=== PATIENT | female | born 1995 | race Caucasian/White ===

== ENCOUNTER 2022-10-05 09:05 | Outpatient (REF) | payer OTHER, SELFPAY ==
[2022-10-05 10:24] LABS: Hematocrit 36.5 % (37.0-47.0); Hemoglobin 12.5 g/dl (12.0-16.0); Mean Corpuscular HGB Conc 34.2 g/dl (31.0-35.0); Mean Corpuscular Hemoglobin 30.3 pg (27.0-33.0); Mean Corpuscular Volume 88.4 fL (80.0-98.0); Mean Platelet Volume 9.5 fL (9.4-12.3); Platelet Count 236 X10*3/uL (160-400); Red Blood Count 4.13 X10*6/uL (4.20-5.50); White Blood Count 6.8 X10*3/uL (4.8-10.8)
[2022-10-05 10:29] LABS: Prothrombin Time 11.3 SEC (10.0-13.1)
[2022-10-05 10:53] LABS: Alanine Aminotransferase 79 U/L (0-31); Albumin Level 4.2 g/dL (3.5-5.0); Alkaline Phosphatase 66 U/L (39-117); Anion Gap 11 (12-20); Aspartate Amino Transferase 48 U/L (5-31); Bilirubin Total 0.5 mg/dL (0.0-1.0); Blood Urea Nitrogen 9 mg/dL (9-16); Calcium 9.4 mg/dL (8.4-10.2); Carbon Dioxide 26 mmol/L (22-29); Chloride 108 mmol/L (96-108); Estimated Glomerular Filt Rate > 60; Glucose Random 85 mg/dL (60-115); Potassium 3.9 mmol/L (3.3-5.1); Sodium 141 mmol/L (135-145); Total Protein 7.1 g/dL (6.5-8.0)
[2022-10-06 04:14] LABS: Hepatitis A Antibody IgG REACTIVE (Nonreactive); ~Hepatitis A Antibody IgG 8.57 S/CO (0.00-0.99)
[2022-10-06 04:32] LABS: HBS Num1 2.01 mIU/mL (0-7.99); HBc Num1 0.11 S/CO (0.00-0.79); HBsAGNum1 0.31 S/CO (0.00-0.99); HIV AB/AG Nonreactive (Nonreactive); HIV Num 1 0.08 S/CO (0.00-0.99); Hepatitis B Core Antibody Nonreactive (Nonreactive); Hepatitis B Surface Antigen Negative (Negative); ~Hepatitis B Surface Antibody NONREACTIVE (Nonreactive)
[2022-10-07 20:43] LABS: Hepatitis B Viral DNA Qn - cp <1.00 NOT DETECTED Log IU/mL (NOT DETECTED); Hepatitis B Viral DNA Qn-IU/mL <10 NOT DETECTED IU/mL (NOT DETECTED)
[2022-10-14 14:24] LABS: Hepatitis C Genotype 3
== END 2022-10-05 09:06 | disposition home or self-care (01) ==
LOC: HO.LAB 09:05
PROVIDERS: PCP Internal Medicine; Referring Provider Internal Medicine; Visit Provider Internal Medicine
DX: B18.2 Chronic viral hepatitis C (principal); F11.21 Opioid dependence, in remission; F17.210 Nicotine dependence, cigarettes, uncomplicated
CPT/HCPCS: 36415; 80053; 85027; 85610; 86704; 86706; 86708; 87340; 87389; 87517; 87902; 99202

== ENCOUNTER 2022-10-15 08:02 | Outpatient (REF) | payer OTHER, SELFPAY ==
--- NOTE | ~2022-10-15 | US_ITS ---
EXAMINATION: US ABDOMEN COMPLETE CLINICAL INFORMATION: Unspecified viral hepatitis C without hepatic coma. COMPARISON: None available. TECHNIQUE: Real-time imaging of the abdominal viscera. Limited exam due to obstructive/highly shadowing bowel gas. FINDINGS: PANCREAS: Mildly atrophic and otherwise unremarkable. No mass, ductal dilatation or peripancreatic fluid collection is noted. ABDOMINAL AORTA: The proximal, mid, and distal segments are normal in caliber. INFERIOR VENA CAVA: Visualized portions are normal. LIVER: The liver is normal in size. The liver contour is normal. There is mildly increased liver parenchymal echogenicity. No focal hepatic lesion. There is no intrahepatic biliary duct dilatation seen. GALLBLADDER: The gallbladder is physiologically distended. Multiple mobile gallstones are present. No evidence of pericholecystic fluid. COMMON BILE DUCT: Normal in caliber measuring 0.7 cm in diameter. RIGHT KIDNEY: Normal. No hydronephrosis. No renal calculi or focal parenchymal lesions. The kidney measures 11.9 cm in maximum dimension. 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 No hydronephrosis. No renal calculi or focal parenchymal lesions. The kidney measures 10.6 cm in maximum dimension. SPLEEN: No focal finding. The spleen measures 13.0 cm in maximum dimension. FREE FLUID: None. US/US abdomen complete IMPRESSION: 1. There is generalized increase in hepatic echotexture, consistent with fatty infiltration or hepatocellular disease. Please correlate clinically. Provided history of hepatitis C noted. No focal hepatic mass or intrahepatic biliary dilatation is seen. 2. There is borderline splenomegaly. 3. There is cholelithiasis. 4. 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
== END 2022-10-15 08:03 | disposition home or self-care (01) ==
LOC: HO.HMGCX 08:02
PROVIDERS: PCP Internal Medicine; Visit Provider Internal Medicine
DX: B19.20 Unspecified viral hepatitis C without hepatic coma (principal)
CPT/HCPCS: 76700

== ENCOUNTER → 2022-10-19 09:49 | Outpatient (BNVA) | payer OTHER, SELFPAY | PROVIDERS: PCP Internal Medicine; Visit Provider Internal Medicine | DX: B19.20 Unspecified viral hepatitis C without hepatic coma (principal); B20 Human immunodeficiency virus [HIV] disease | CPT/HCPCS: 99211 ==

== ENCOUNTER 2023-01-05 08:54 | Outpatient (AMB) | payer OTHER, SELFPAY ==
--- NOTE | 2023-01-05 09:02 | MHC.OFFVIS ---
Intake Vital Signs 01/05/23 09:04 Height 5 ft 4 in Weight 194 lb 0.108 oz BMI 33.3 BP 98/60 Blood Pressure Location Lt brachial Position Sitting Pulse 89 Intake Visit Reasons: 3 month fu Intake Note: Jodie presents in the office as a 3 month follow up. CC: She states that she is not having any concerns today! 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 10/05/22: Likely contracted from IV drug use. First found out about this almost 6 years ago through a detox center. Has been sober since 01/2021. Has previously been checked for HIV and HBV and reportedly negative. Currently only complaints are occ nausea and fatigue. Smokes 0.5PPD, does not drink. No fam hx of liver disease that she is aware of. Labs from [facility]. reviewed, genotype, HBV and HIV status N/A. Correspondence: On 10/15/22 @ 14:24 Marietta Jain Wrote To Annmarie Benítez Yes pls, thank you. On 10/15/22 @ 14:17 Annmarie Benítez Wrote To Marietta Jain ?Glecaprevir (300 mg)?/?pibrentasvir (120 mg)? x 8 weeks OR Sofosbuvir (400 mg)?/?velpatasvir (100 mg)?x 12 weeks ? On 10/15/22 @ 14:16 Marietta Jain Wrote To Annmarie Benítez Genotype 3 for HCV. Paras, could you pls help move forward with the tx? THank you On 11/17/22 @ 12:29 Marietta Jain Wrote To Ludmila Urbano (2) Thank you for keeping tabs on this Paras. I will also forward this to her PCP. On 11/17/22 @ 11:16 Annmarie Benítez Wrote To Marietta Jain telephone call received from [facility] pharmacy. I was informed that patient has been unreachable and has not received her Hep C medications. I was informed that several messages have been left with no call returned. I have also attempted several calls with no response. sending as FYI 01/05/23: Pt reports was on vacation at the end of October and therefore was not reachable. However has now started Mavyret since 11/30 and has been taking it as prescribed. Started week 5 this Tuesday. No other gastrointestinal issues otherwise. No relapse of IVDU. Not sexually active. [facility] Medical History Annual physical exam Anxiety Bipolar 1 disorder Cyclic vomiting syndrome Depression Hepatitis C Hx of osteomyelitis Normal pelvic exam Osteomyelitis Substance abuse Surgical History History of surgery on lower extremity Family History Father Substance use disorder Mother No problems noted. Other Mental health disorder Social History Household Members Other:: single, unemployed, Housing: Other Patient Tobacco Use Status: Current everyday Tobacco user Cigarette Packs Per Day: 0.5 e-Cigarette/Vaping Use: Former Use Current occupational status: unemployed Cognitive needs: No Hearing needs: No Vision needs: No Physical Exam Vital Signs: Last Vital Signs Pulse 89 01/05/23 09:04 BP 98/60 01/05/23 09:04 BMI result Body Mass Index 33.3 Gen appear: NAD HEENT: nonicteric, no cervical lymphadenopathy Chest: CTA CVS: Regular S1/S2 Abd: soft, nontender, nondistended, bowel sounds + Ext: no peripheral edema Neuro: A/Ox3, noted to move all extremities spontaneously Psych: interacting appropriately Assessment & Plan Assessment & Plan (1) Hepatitis C: Code(s): B19.20 - Unspecified viral hepatitis C without hepatic coma Plan: Chronic HCV genotype 3 - Treatment naiive. No clinical evidence of cirrhosis. - No coinfection with HBV or HIV Started Mavyret 11/30 and due to complete this 01/31. Plan: - Monitor hepatic function at 8w - labs ordered and reminder set - Will also need labs in Dec to document SVR 12 - Encouraged continued sobriety from polysubstance use - Follow up in 5 months i.e after labs for SVR Orders: Orders Liver Panel 01/31/23 B19.20 - Unspecified viral hepatitis C without hepatic coma Hepatitis C Viral Load 01/31/23 B19.20 - Unspecified viral hepatitis C without hepatic coma Prothrombin Time INR 01/31/23 B19.20 - Unspecified viral hepatitis C without hepatic coma Coding Level of Care Code Est Pt Level 4 (89543) Diagnoses Hepatitis C B19.20
[2023-01-05 09:04] VITALS: BP 98/60; PULSE 89; BMI 33.3
== END 2023-01-05 09:43 | disposition home or self-care (01) ==
PROVIDERS: PCP Internal Medicine; Visit Provider Internal Medicine
DX: B19.20 Unspecified viral hepatitis C without hepatic coma (principal)
CPT/HCPCS: 99214

== ENCOUNTER → 2023-01-05 08:54 | Outpatient (BNVA) | payer OTHER, SELFPAY | PROVIDERS: PCP Internal Medicine; Visit Provider Internal Medicine | DX: B19.20 Unspecified viral hepatitis C without hepatic coma (principal) | CPT/HCPCS: 99212 ==

== ENCOUNTER 2023-02-09 09:24 | Outpatient (REF) | payer OTHER, SELFPAY ==
[2023-02-09 10:12] LABS: Prothrombin Time 11.8 SEC (11.1-13.3)
[2023-02-09 10:51] LABS: Alanine Aminotransferase 16 U/L (0-31); Albumin Level 4.2 g/dL (3.5-5.0); Alkaline Phosphatase 79 U/L (39-117); Aspartate Amino Transferase 20 U/L (5-31); Bilirubin Direct 0.2 mg/dL (0.0-0.5); Bilirubin Total 0.6 mg/dL (0.0-1.0); Total Protein 7.4 g/dL (6.5-8.0)
[2023-02-10 14:49] LABS: HCV Log PCR <1.18 NOT DETECTED Log IU/mL (NOT DETECTED); HepC Viral Load <15 NOT DETECTED IU/mL (NOT DETECTED)
== END 2023-02-09 09:25 | disposition home or self-care (01) ==
LOC: HO.LAB 09:24
PROVIDERS: PCP Internal Medicine; Visit Provider Internal Medicine
DX: B19.20 Unspecified viral hepatitis C without hepatic coma (principal)
CPT/HCPCS: 36415; 80076; 85610; 87522

== ENCOUNTER 2023-08-15 11:09 | Emergency (ER) | payer OTHER, SELFPAY ==
--- NOTE | ~2023-08-15 | CT_ITS ---
EXAMINATION: CT ABDOMEN AND PELVIS WITH CONTRAST CLINICAL INFORMATION: Periumbilical and right lower quadrant abdominal pain. COMPARISON: Ultrasound imaging from 10/15/2022 TECHNIQUE: Multidetector volumetric images were obtained from the superior aspect of the liver through the pubic symphysis following administration 85 mL of Omnipaque 350 intravenous contrast. Sagittal and coronal reformatted images were obtained on the technologist's workstation. Oral contrast: No This CT examination was performed using dose optimization techniques as appropriate, variously including the following: *Automated exposure control *Adjustment of mA and/or kV according to patient size (this includes techniques or standardized protocols for targeted exams where dose is matched to indication/reason for exam; i.e. extremities or head) *Use of iterative reconstruction technique DLP: 673 mGy-cm FINDINGS: LUNG BASES: No pulmonary consolidation or pleural effusion. HEPATOBILIARY: Mild hepatomegaly with the right hepatic lobe measuring 18.8 cm in craniocaudal dimension. No focal liver lesion. Gallbladder is physiologically distended. A noncalcified stone is faintly visualized within the gallbladder neck. No gallbladder wall edema or pericholecystic fluid. No dilated bile ducts. PANCREAS: No edema, pancreatic ductal dilatation or mass. SPLEEN: Normal. ADRENAL GLANDS: Normal. KIDNEYS AND URETERS: The left kidney is chronically ectopically positioned within the pelvis. No renal stones or hydronephrosis. BLADDER: Normal. BOWEL AND PERITONEUM: Stomach and small bowel are unremarkable. No dilated loops. The appendix is normal. No overt colonic wall thickening or mesenteric fat stranding. No free fluid or pneumoperitoneum. ABDOMINAL WALL: Large body habitus. No acute abnormalities within the abdominal wall. VASCULATURE: Unremarkable. LYMPH NODES: No pathologic sized lymph nodes in the abdomen or pelvis. No inguinal lymphadenopathy. PELVIC VISCERA: No uterine or adnexal mass. No pelvic fluid collection. MUSCULOSKELETAL: No acute or suspicious osseous abnormality. 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 There is vacuum disc degenerative change at L5-S1. CT/CT abdomen pelvis w IV con IMPRESSION: * Cholelithiasis without evidence of cholecystitis. * The appendix is normal. No evidence of an acute inflammatory process along the gastrointestinal tract. * The left kidney is ectopically positioned within the pelvis. No renal stone or hydronephrosis. 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
--- NOTE | 2023-08-15 11:12 | ED.GENADULT ---
HPI - General Adult General Chief complaint: Nausea/Vomiting/Diarrhea Stated complaint: Abd pain/Vomiting Time Seen by Provider: 08/15/23 12:37 Source: patient Mode of arrival: ambulatory History of Present Illness HPI narrative: 27-year-old female who arrives with onset of diffuse abdominal discomfort that started this morning with associated nausea, vomiting, denies any surgical history or renal colic, denies dysuria. Related Data Home Medications Medication Instructions Recorded Confirmed gabapentin 400 mg capsule 400 mg PO TID 01/05/23 Previous Rx's Medication Instructions Recorded glecaprevir 100 mg-pibrentasvir 40 3 tab PO DAILY 8 weeks #168 tabs 11/02/22 mg tablet amitriptyline 50 mg tablet 50 mg PO BEDTIME #30 tabs 11/26/22 amitriptyline 10 mg tablet 10 mg PO DAILY #30 tabs 03/03/23 Allergies Allergy/AdvReac Type Severity Reaction Status Date / Time prochlorperazine Allergy Intermediate dystonic Verified 01/05/23 09:04 [From Compazine] reaction Review of Systems Review of Systems: Pertinent positives and negatives as stated in HPI [facility] Past Medical History Source: nursing notes reviewed Medical History Hx of osteomyelitis Bipolar 1 disorder Substance abuse Osteomyelitis Normal pelvic exam Annual physical exam Anxiety Depression Hepatitis C Cyclic vomiting syndrome Surgical History History of surgery on lower extremity Family History Family History Father Substance use disorder Mother No problems noted. Other Mental health disorder Social History Social History Household Members Other:: single, unemployed, Housing: Other Patient Tobacco Use Status: Current everyday Tobacco user Cigarette Packs Per Day: 0.5 Smoked in Last 30 Days: Yes e-Cigarette/Vaping Use: Former Use Use of substances other than those prescribed or required for medical reasons: No Advance Directives: No Advance Directives Information Provided: No Patient : No Current occupational status: unemployed Cognitive needs: No Hearing needs: No Vision needs: No Physical Exam ED Vital Signs: Vital Signs - 24 hr 08/15/23 11:13 08/15/23 12:33 Temperature 98.3 F 98.3 F Pulse Rate 90 72 Respiratory Rate 20 12 Blood Pressure 112/55 L 93/74 Pulse Oximetry 97 100 Oxygen Delivery Method Room Air Room Air BMI result Body Mass Index 32.6 VITAL SIGNS: Reviewed. GENERAL: Elevated BMI, Well developed, well nourished, in no acute distress. HEAD: Normocephalic/atraumatic EYES: PERRLA, EOMI EARS: Ext canals without abnormality NOSE: Nares patent bilateral OROPHARYNX: no oral lesions noted, posterior pharynx clear NECK: Supple, no adenopathy LUNGS: Normal breath sounds. No adventitious sounds or accessory muscle use. SpO2<100> CARDIOVASCULAR: Regular rate and rhythm without noted murmurs ABDOMEN: Soft, periumbilical/right lower quadrant discomfort without rebound, non-distended with bowel sounds. MUSCULOSKELETAL: No tenderness, deformities, or effusions noted on gross inspection. EXTREMITIES: No cyanosis, clubbing or edema. SKIN: Inspection of the skin reveals no rashes NEUROLOGIC: Alert and oriented x 4. Strength and sensation to light touch were grossly intact x 4. Course Course Course Narrative: This is a rapid medical exam: Additional HPI, ROS, PE not included below will be deferred to primary provider. Patient is a 27-year-old female with history of hepatitis C, cyclical vomiting syndrome, bipolar 1 disorder presenting to the ED with complaint of diffuse abdominal pain, nausea, and vomiting since 5am. Plan: labs, UA Medications Administered Discontinued Medications Generic Name Dose Route Start Last Admin Trade Name Freq PRN Reason Stop Dose Admin Sodium Chloride 500 mls @ 999 mls/hr 08/15/23 13:15 08/15/23 14:17 Ns IV 08/15/23 13:45 Infused .Q31M YASH Infusion Iohexol 85 ml 08/15/23 15:32 08/15/23 15:35 Iohexol 350 Mg/Ml 100 Ml Infus..Btl IV 08/15/23 15:33 85 ml ONCE ONE Administration Ondansetron HCl 4 mg 08/15/23 13:14 08/15/23 13:48 Ondansetron Hcl 4 Mg/2 Ml Vial IVPUSH 08/15/23 13:15 4 mg ONCE ONE Administration Medical Decision Making Medical Decision Making MDM Narrative: 27-year-old female with history and clinical presentation, DDX: Renal colic, UTI, some concern for appendicitis although lower, possible constipation. I reviewed all investigations and hematologic indices demonstrated non infectious leukocytosis, patient is afebrile and there is no anemia or thrombocytopenia. Chemistry indices negative for SARAN/electrolyte or liver enzyme derangements and beta hCG is undetectable. Urinalysis is negative for UTI or hematuria. CT scan negative other than for cholelithiasis without evidence of acute cholecystitis. Patient was p.o. challenged and tolerated intake, she is otherwise discharged with instructions to follow-up in the outpatient setting for elective cholecystectomy. Differential Diagnosis Differential Diagnoses: The differential diagnosis associated with the presentation includes Please see the discussion above Admission/Observation Consideration of admission/observation: Escalation of care including admission/observation considered Please see the discussion above Lab Data MDM Lab Attestation statement: I reviewed the patient's lab results. Please see the discussion above 08/15/23 11:26 08/15/23 11:26 Labs: Lab Results 08/15/23 08/15/23 Range/Units 11:26 13:23 WBC 13.9 H (4.8-10.8) X10*3/uL RBC 4.54 (4.20-5.50) X10*6/uL Hgb 13.7 (12.0-16.0) g/dl Hct 38.2 (37.0-47.0) % MCV 84.1 (80.0-98.0) fL MCH 30.2 (27.0-33.0) pg MCHC 35.9 H (31.0-35.0) g/dl RDW 12.8 (11.0-16.0) % Plt Count 321 D (160-400) X10*3/uL MPV 9.1 L (9.4-12.3) fL Immature Gran % (Auto) 0.3 (0.0-0.4) % Neut % (Auto) 84.3 H (45-73) % Lymph % (Auto) 11.6 L (20-40) % [place] % (Auto) 2.9 (2-11) % Eos % (Auto) 0.5 (0-4) % Baso % (Auto) 0.4 (0-2) % Lymph # (Auto) 1.6 (1.2-4.9) X10*3/uL [place] # (Auto) 0.4 (0.1-1.2) X10*3/uL Eos # (Auto) 0.1 (0.0-0.4) X10*3/uL Baso # (Auto) 0.1 (0.0-0.2) X10*3/uL Abs Immat Gran (auto) 0.04 H (0.00-0.03) X10*3/uL Absolute Neuts (auto) 11.7 H (2.0-8.3) x10*3/uL Absolute Nucleated RBC 0.000 (0.0-0.012) X10*3/uL Nucleated RBC % (auto) 0.0 (0.0-0.2) /100WBC Sodium 143 (135-145) mmol/L Potassium 3.8 (3.3-5.1) mmol/L Chloride 109 H (96-108) mmol/L Carbon Dioxide 23 (22-29) mmol/L Anion Gap 15 (12-20) BUN 6 L (9-16) mg/dL Creatinine 0.68 (0.5-1.4) mg/dL Estim Creat Clear Calc 133.1 Estimated GFR > 60 Random Glucose 112 (60-115) mg/dL Calcium 9.5 (8.4-10.2) mg/dL Magnesium 2.2 (1.6-2.6) mg/dL Total Bilirubin 0.3 (0.0-1.0) mg/dL AST 14 (5-31) U/L ALT 20 (0-31) U/L Alkaline Phosphatase 64 (39-117) U/L Total Protein 7.5 (6.5-8.0) g/dL Albumin 4.5 (3.5-5.0) g/dL Beta HCG, Quant < 2 mIU/mL Urine Color Yellow Urine Appearance Clear Urine pH 8.0 (5.0-9.0) Ur Specific [place] 1.020 (1.005-1.025) Urine Protein Trace (Neg-Trace) mg/dL Urine Glucose (UA) Negative (Negative) mg/dL Urine Ketones Negative (Negative) mg/dL Urine Blood Negative (Negative) Urine Nitrite Negative (Negative) Ur Leukocyte Esterase Negative (Negative) Radiology Impression Discussion of test interpretation with radiology: I have reviewed the radiologist's reading. Radiologist Impression: Please see the discussion above External Record Review External record reviewed: Outpatient record, Prior outpatient labs and Prior outpatient radiology Critical Care Time Critical Care Time Critical Care Time: Yes Total Critical Care Time: 30 Attestation: I personally attest to this time spent taking care of the patient. Discharge Plan Discharge Clinical Impression: Cholelithiasis Patient Disposition: Home, Self-Care Instructions: Gallstones (ED) Additional Instructions: 1. Resume all home medications as prescribed. 2. Follow-up with a referral that we have provided below to have the gallbladder stones evaluated in the outpatient setting with possible discussion regarding the removal of your gallbladder. This does not need to happen today. 3. Please follow-up with your primary care doctor in the next 1-2 days. Return to the ER for any acute worsening of your symptoms. Prescriptions: No Action glecaprevir-pibrentasvir 100-40 mg tablet 3 tab PO DAILY 56 Days Qty: 168 0RF Rx Instructions: must administer with a meal/food amitriptyline 50 mg tablet 50 mg PO BEDTIME Qty: 30 2RF amitriptyline 10 mg tablet 10 mg PO DAILY Qty: 30 2RF gabapentin 400 mg capsule 400 mg PO TID Referrals: Ludmila Urbano MD [Primary Care Provider] - Jeison Walker MD [Physician] -
[2023-08-15 11:13] VITALS: BP 112/55; PULSE 90; RESP 20; TEMP 36.8; O2SAT 97; BMI 32.6
[2023-08-15 11:31] LABS: MANUAL DIFF FLAG NO
[2023-08-15 11:33] LABS: Basophils Absolute Auto 0.1 X10*3/uL (0.0-0.2); Basophils Percent Auto 0.4 % (0-2); Eosinophils Absolute Auto 0.1 X10*3/uL (0.0-0.4); Eosinophils Percent Auto 0.5 % (0-4); Hematocrit 38.2 % (37.0-47.0); Hemoglobin 13.7 g/dl (12.0-16.0); Imm Gran Abs Auto 0.04 X10*3/uL (0.00-0.03); Imm Gran Pct Auto 0.3 % (0.0-0.4); Lymphocytes Absolute Auto 1.6 X10*3/uL (1.2-4.9); Lymphocytes Percent Auto 11.6 % (20-40); Mean Corpuscular HGB Conc 35.9 g/dl (31.0-35.0); Mean Corpuscular Hemoglobin 30.2 pg (27.0-33.0); Mean Corpuscular Volume 84.1 fL (80.0-98.0); Mean Platelet Volume 9.1 fL (9.4-12.3); Monocytes Absolute Auto 0.4 X10*3/uL (0.1-1.2); Monocytes Percent Auto 2.9 % (2-11); Neutrophils Absolute Auto 11.7 x10*3/uL (2.0-8.3); Neutrophils Percent Auto 84.3 % (45-73); Platelet Count 321 X10*3/uL (160-400); Red Blood Count 4.54 X10*6/uL (4.20-5.50); Red Cell Distribution Width 12.8 % (11.0-16.0); White Blood Count 13.9 X10*3/uL (4.8-10.8)
[2023-08-15 11:53] LABS: Alanine Aminotransferase 20 U/L (0-31); Albumin Level 4.5 g/dL (3.5-5.0); Alkaline Phosphatase 64 U/L (39-117); Anion Gap 15 (12-20); Aspartate Amino Transferase 14 U/L (5-31); Bilirubin Total 0.3 mg/dL (0.0-1.0); Blood Urea Nitrogen 6 mg/dL (9-16); Calcium 9.5 mg/dL (8.4-10.2); Carbon Dioxide 23 mmol/L (22-29); Chloride 109 mmol/L (96-108); Creatinine Clr Calc Pharmacy 133.1; Estimated Glomerular Filt Rate > 60; Glucose Random 112 mg/dL (60-115); HCG Quantitative < 2 mIU/mL; Magnesium 2.2 mg/dL (1.6-2.6); Potassium 3.8 mmol/L (3.3-5.1); Sodium 143 mmol/L (135-145); Total Protein 7.5 g/dL (6.5-8.0)
[2023-08-15 12:33] VITALS: BP 93/74; PULSE 72; RESP 12; TEMP 36.8; O2SAT 100
[2023-08-15 13:29] LABS: Appearance Urine Clear; Color Urine Yellow; Glucose Urine UA Negative (Negative); Leukocyte Esterase Urine Negative (Negative); Nitrite Urine Negative (Negative); Urine Blood Negative (Negative); Urine Ketones Negative (Negative); Urine Protein Trace mg/dL (Neg-Trace)
[2023-08-15] MEDS: 0.9 % Sodium Chloride 500 ML 1000 ML IV (13:47)
[2023-08-15] MEDS: ondansetron HCL 4 MG/2 ML VIAL IVPUSH (13:48)
--- NOTE | 2023-08-15 13:48 | PC.NURSE ---
pt a&ox3, c/o 10/23 abd pain, iv inserted, labs previously drawn, ivf started per order, pt medicated for nausea, will continue to monitor
--- NOTE | 2023-08-15 13:53 | PC.NURSE ---
after zofran pt vomited 200 cc
[2023-08-15] MEDS: iohexoL 350 MG/ML 100 ML INFUS..BTL 85 ML IV (15:35)
[2023-08-15 17:10] VITALS: BP 92/63; PULSE 93; RESP 17; TEMP 36.3; O2SAT 99
[2023-08-15 17:52] VITALS: BP 108/66; PULSE 88; RESP 18; TEMP 36.7; O2SAT 98
== END 2023-08-15 17:53 | disposition home or self-care (01) ==
PROVIDERS: Registered Nurse Emergency; Emergency Provider Student in an Organized Health Care Education/Training Program; PCP Internal Medicine
DX: K80.20 Calculus of gallbladder without cholecystitis without obstruction (principal); R11.2 Nausea with vomiting, unspecified; Z79.899 Other long term (current) drug therapy
CPT/HCPCS: 36415; 74177; 80053; 81003; 83735; 84702; 85025; 96374; 99284; J2405; Q9967

== ENCOUNTER 2023-08-17 08:17 | Outpatient (AMB) | payer OTHER, SELFPAY ==
--- NOTE | 2023-08-17 08:20 | A.OFFVIS_ITS ---
Intake Vital Signs 08/17/23 08:21 Height 5 ft 4 in Weight 195 lb BMI 33.5 BP 104/56 L Blood Pressure Location Rt brachial Position Sitting Pulse 111 H Intake Visit Reasons: cholelithiasis Intake Note: [place] [facility] [place]. Pt c/o; reports RUQ pain, reports loss of appetite, reports last episode of nausea and vomiting was on last Tuesday. 08/15/2023; abd/pelvis CT Index Clerk Required: No Accompanied by: Self / Same As Patient Allergies prochlorperazine [From Compazine] Allergy (Intermediate, Verified 08/17/23 08:34) dystonic reaction Medication List - Last Reconciled 08/17/23 by Semaj Mendosa MD amitriptyline 50 mg PO BEDTIME amitriptyline 10 mg PO DAILY gabapentin 400 mg PO TID glecaprevir-pibrentasvir 100-40 mg 3 tabs PO DAILY 8 weeks HPI cholelithiasis HPI Details 27-year-old female referred by the ER fo r gallstones. She went to the ER last 08/15/2023 for sudden right sided abdominal pain. She describes having some vomiting as well at that time. She had imaging studies showing gallstones without cholecystitis. She was therefore sent home from the ER. However, she states that she continues to have pain which she describes as on the right upper quadrant under the ribs. She says she has not been able to eat well since her ER visit because of this pain. She denies any further vomiting. She does have a history of cyclical vomiting although she says she has had no symptoms with this for several years now. She has a history of hepatitis C as well. She has history of IV drug abuse but has been sober. She currently is here in the area because of [employer]. Her family is in [place] otherwise. [facility] Medical History (Updated 08/17/23 @ 08:47 by Semaj Mendosa MD) Gallstones Morbid obesity Hx of osteomyelitis Bipolar 1 disorder Substance abuse Osteomyelitis Normal pelvic exam Annual physical exam Anxiety Depression Hepatitis C Cyclic vomiting syndrome Surgical History History of surgery on lower extremity Family History Father Substance use disorder Mother No problems noted. Other Mental health disorder Social History Household Members Other:: single, unemployed, Housing: Other Patient Tobacco Use Status: Current everyday Tobacco user Cigarette Packs Per Day: 0.5 e-Cigarette/Vaping Use: Former Use Current occupational status: unemployed Cognitive needs: No Hearing needs: No Vision needs: No Review of Systems Const Denies chills and Denies fever(s) Card Denies chest pain, Denies dyspnea and Denies dyspnea on exertion Resp Denies cough, Denies dyspnea and Denies dyspnea on exertion GI Denies hematochezia and Denies change in bowel habits Denies hematuria Musc Denies back pain and Denies limited range of motion Neuro Denies focal weakness and Denies convulsions Psych Denies depression and Denies mood swings Physical Exam Vital Signs: Last Vital Signs Pulse 111 H 08/17/23 08:21 BP 104/56 L 08/17/23 08:21 BMI result Body Mass Index 33.5 Const Other: Morbidly obese General: comfortable and no acute distress Orientation/consciousness: patient oriented x3 Neck Neck: Yes no lymphadenopathy Resp Auscultation: clear to auscultation bilaterally Cardio Rhythm: regular rhythm GI Other: Some tenderness on right upper quadrant Palpation (GI): Soft to palpation, nontender and no guarding Neuro General: patient oriented x3 Assessment & Plan Assessment & Plan (1) Gallstones: Code(s): K80.20 - Calculus of gallbladder without cholecystitis without obstruction Plan: She had an ultrasound and CAT scan in the ER last Tuesday showing gallstones without cholecystitis She continues to have pain and tenderness. LFTs were normal. In view of her persistent symptoms, she wants to proceed with cholecystectomy. I explained to the technique of laparoscopic cholecystectomy and possible open cholecystectomy. I reviewed the risks including but not limited to bleeding, infection, injury to bowel, injury to the liver and the bile ducts, bile leak, retained stones, as well as the benefits and alternatives. I reviewed with her what to expect post operatively. She understands that in view of her morbid obesity, her perioperative risks may be higher than average. She is given consent. In view of her symptoms, she wants to proceed and wants this procedure soon. Coding Level of Care Code New Pt Level 3 (55800) Diagnoses Gallstones K80.20
[2023-08-17 08:21] VITALS: BP 104/56; PULSE 111; BMI 33.5
== END 2023-08-17 08:42 | disposition home or self-care (01) ==
PROVIDERS: PCP Internal Medicine; Visit Provider Surgery
DX: K80.20 Calculus of gallbladder without cholecystitis without obstruction (principal)
CPT/HCPCS: 99203

== ENCOUNTER → 2023-08-17 08:17 | Outpatient (BNVA) | payer OTHER, SELFPAY | PROVIDERS: PCP Internal Medicine; Visit Provider Surgery | DX: K80.20 Calculus of gallbladder without cholecystitis without obstruction (principal) | CPT/HCPCS: 99202 ==

== ENCOUNTER → 2023-08-18 12:26 | Day surgery (SDC) | payer OTHER, SELFPAY | PROVIDERS: PCP Internal Medicine; Visit Provider Surgery | DX: K80.20 Calculus of gallbladder without cholecystitis without obstruction (principal); Z53.20 Procedure and treatment not carried out because of patient's decision for unspecified reasons | CPT/HCPCS: J0665 ==

== ENCOUNTER 2023-08-19 08:54 | Day surgery (SDC) | payer OTHER, SELFPAY ==
--- NOTE | 2023-08-18 13:34 | P.CONAN_ITS ---
Documented by User: Cristina Watson NP 08/18/23 13:35 HPI - Anesthesia Eval Consult details Narrative: 27yo F for Cholecystectomy Laparoscopic,possible open PMFSH Active Problems Active Problems: All Active Problems Gallstones (Acute) Morbid obesity (Acute) Hepatitis C (Acute) Bipolar 1 disorder (Acute) Cyclic vomiting syndrome (Acute) Substance abuse (Acute) Osteomyelitis (Acute) Normal pelvic exam (Acute) Annual physical exam (Acute) Past Medical History Medical History (Updated 08/17/23 @ 08:47 by Semaj Mendosa MD) Gallstones Morbid obesity Hx of osteomyelitis Bipolar 1 disorder Substance abuse Osteomyelitis Normal pelvic exam Annual physical exam Anxiety Depression Hepatitis C Cyclic vomiting syndrome Family History Family History Father Substance use disorder Mother No problems noted. Other Mental health disorder Surgical History Surgical History History of surgery on lower extremity Social History Social History Household Members Other:: single, unemployed, Housing: Other Patient Tobacco Use Status: Current everyday Tobacco user Tobacco use type: Cigarette Cigarette Packs Per Day: 0.5 Cigarettes Per Day: 5 Years Smoked: 8 Smoked in Last 30 Days: Yes e-Cigarette/Vaping Use: Former Use Use of substances other than those prescribed or required for medical reasons: No Are you DNR?: No Advance Directives: No Advance Directives Information Provided: Yes Current occupational status: unemployed Cognitive needs: No Hearing needs: No Vision needs: No Meds Allergies Allergy/AdvReac Type Severity Reaction Status Date / Time prochlorperazine Allergy Intermediate dystonic Verified 08/19/23 10:02 [From Compazine] reaction Home Medications ?Medication ?Instructions ?Recorded ?Confirmed ?Last Taken ?Type gabapentin 400 mg capsule 400 mg PO TID 01/05/23 08/19/23 Unknown History amitriptyline 10 mg tablet 10 mg PO BEDTIME 08/19/23 08/19/23 Unknown History Exam Pertinent Lab Results Pertinent Lab Results: Laboratory Tests 08/15/23 11:26 WBC 13.9 H Hgb 13.7 Hct 38.2 Plt Count 321 D Sodium 143 Potassium 3.8 Chloride 109 H Carbon Dioxide 23 BUN 6 L Creatinine 0.68 Documented by User: Nasim Vyas MD 08/19/23 12:04 PMFSH Past Medical History Medical History (Updated 08/17/23 @ 08:47 by Semaj Mendosa MD) Gallstones Morbid obesity Hx of osteomyelitis Bipolar 1 disorder Substance abuse Osteomyelitis Normal pelvic exam Annual physical exam Anxiety Depression Hepatitis C Cyclic vomiting syndrome Patient : No Family History Family History Father Substance use disorder Mother No problems noted. Other Mental health disorder Family history of problems with anesthesia: No Surgical History Surgical History History of surgery on lower extremity History of Problems with Anesthesia: No Social History Social History Household Members Other:: single, unemployed, Housing: Other Patient Tobacco Use Status: Current everyday Tobacco user Tobacco use type: Cigarette Cigarette Packs Per Day: 0.5 Cigarettes Per Day: 5 Years Smoked: 8 Smoked in Last 30 Days: Yes e-Cigarette/Vaping Use: Former Use Use of substances other than those prescribed or required for medical reasons: No Are you DNR?: No Advance Directives: No Advance Directives Information Provided: Yes Current occupational status: unemployed Cognitive needs: No Hearing needs: No Vision needs: No Meds Allergies Allergy/AdvReac Type Severity Reaction Status Date / Time prochlorperazine Allergy Intermediate dystonic Verified 08/19/23 10:02 [From Compazine] reaction Home Medications ?Medication ?Instructions ?Recorded ?Confirmed ?Last Taken ?Type gabapentin 400 mg capsule 400 mg PO TID 01/05/23 08/19/23 Unknown History amitriptyline 10 mg tablet 10 mg PO BEDTIME 08/19/23 08/19/23 Unknown History Exam Airway Mallampati Class: III TM Dist: <=3cm Neck ROM: Full Loose/Missing/Broken Teeth: No Heart: ok Lungs: ok Assessment and Plan Assessment Anesthesia Assessment: Anesthesia Plan Discussed and Chart Reviewed Final Anesthetic Review Family History of Problems with Anesthesia: No History of Problems with Anesthesia: No NPO: Yes ASA Class: III Final Preanesthetic Review: No Changes in Pt Med Stat, Meds/Allgs Chart Revi ewed, Consent Obtained/Reviewed and Anes Risks/Benef Reviewed Patient Risk: Intermediate Procedure Risk: Intermediate Anesthetic Plan Anesthetic Plan: GA and Agree w/ Assess. and Plan Disposition: Standard PACU
[2023-08-19] VITALS (14 sets, daily range): BP systolic 103–139; BP diastolic 66–84; PULSE 75–94; RESP 14–18; TEMP 36.4–37; O2SAT 97–100; BMI 34.7
--- NOTE | 2023-08-19 10:10 | MHC.SHP ---
Pre-Procedural Eval Section A - 24 Hr Update-Section A only Date of Service: 08/19/23 The patient is an INPATIENT: No Changes since office visit: No Cold of Flu in the past 2 weeks, No New Medical Problems, No Changes in Medication and No Patient answered all questions The patient has been examined within 24 hours of the surgical procedure. The History & Physical has been completed within 30 days and I have reviewed it.: Yes Section B - Complete if H&P > 30 days Chief Complaint: Calculus of gallbladder without cholecystitis Allergies: Allergies Allergy/AdvReac Type Severity Reaction Status Date / Time prochlorperazine Allergy Intermediate dystonic Verified 08/19/23 10:02 [From Compazine] reaction Plan I have reviewed the history and physical and performed a pertinent physical examination on my patient. No changes have occurred unless specified. Time Spent With Patient Time: Total time managing care of this patient today ____ minutes.
[2023-08-19 10:19] LABS: Amphetamine Screen Urine Not Detected (Not Detect); Barbiturates, Urine Not Detected (Not Detect); Benzodiazepines Screen Urine Not Detected (Not Detect); Cannabinoid Screen Urine Not Detected (Not Detect); Cocaine Screen Urine Not Detected (Not Detect); Fentanyl, urine Not Detected (Not Detect); Opiate Screen Urine Not Detected (Not Detect); Phencyclidine Screen Urine Not Detected (Not Detect)
[2023-08-19 10:21] LABS: UPreg QC Valid YES; Urine Pregnancy NEGATIVE (NEGATIVE)
[2023-08-19] MEDS: Lactated Ringers 1,000 ML 100 ML IVCONT (11:34)
--- NOTE | 2023-08-19 13:09 | P.OP_ITS ---
Operative Note Operative Note Date of Service: 08/19/23 Narrative: Preop diagnosis: Gallstones, with significant symptoms Postop diagnosis: Gallstones, with chronic cholecystitis, significant thickening of gallbladder wall and induration around the neck Procedure: Laparoscopic cholecystectomy Surgeon: Semaj Mendosa MD The patient is a 27-year-old female went to the ER last August 14 because of right upper quadrant pain and epigastric pain. Her CAT scan showed gallstones. She was referred to me in the office. I would seen her 2 days ago and she says she continued to have significant pain. I therefore scheduled her for cholecystectomy today. She understood the technique of the planned procedure as well as the risks, benefits, and alternatives He was brought to the operating room. She was placed supine under general anesthesia via endotracheal tube the abdomen was prepped and draped in the usual sterile fashion. A surgical time-out was done. The patient received Cefotan 2 g IV preoperatively I made an incision on the supraumbilical margin using blade 15. This carried down through the full-thickness of the skin and subcutaneous fat. This was carried down all the to the fascia. It is noted that the patient had significant amounts of subcutaneous fat in view of her morbid obesity. The fascia was incised. The peritoneum was entered. Through this incision a Singh port was introduced. Pneumoperitoneum was introduced to a pressure of 15 mm Hg. From here on the rest of the procedure was done under vision with the 10 mm laparoscopic With laparoscopic visualization I inserted a 5/12 mm port epigastric area below the subcostal margin. Two 5 mm ports introduced small incisions with the subcostal margin along the anterior axillary line the midclavicular line. Graspers were placed this working ports. The patient was placed in a had a the [id number] position. The bladder was seen. The fundus was visible and exposed. However, there was note of large amounts of fibrotic tissue surrounding the anterior wall. I was able to apply a grasper towards the fundus of the gallbladder and this was used to retract the gallbladder cephalad. Proceeded to then carefully teased off omentum and other fibrotic tissue around the anterior wall of the gallbladder. This was suggestive of previous cholecystitis. We had to carefully do blunt dissection of the anterior wall the [place] dissector to allow exposure of the anterior wall. This part of the procedure took an extended period time. Eventually was able to expose the entire anterior wall. I was able to apply another grasper towards the neck. With the area of the cystic duct on stretch as well with retraction of the fundus cephalad and resection of the laterally. There was note of more indurated and thickened fibrotic tissue in the neck so we had to carefully strip this off again with the [place] dissector. We had to do this slowly in view of significant oozing. Eventually, as able to visualize what appeared to be the cystic duct. This appeared to be short. We stayed away from the common bile duct. I was able to visualize the cystic artery as well . We had achieved the critical view of the hepatocystic triangle . With confluence of the cystic duct with the neck of the gallbladder confirmed, I applied clips on the cystic duct with 2 clips applied distally. The cystic duct was transected between clips with Endo scissors. I carefully dissected the rest of the cystic artery. This was then clipped with 2 clips applied distally. The cystic artery was then transected between clips with Endo scissors. With traction on the gallbladder off of the liver bed, I proceeded to do gently used the electrocautery hook to carefully dissect more of indurated tissue in the hilum. This part of the procedure again took an extended period of time because of the induration. We encountered bleeding as well from this indurated tissue. Eventually I was able to reach the interface of the gallbladder wall with the liver bed. I used electrocautery spatula to carefully separate the gallbladder from the liver bed. The planes were poor and the gallbladder was thickened and indurated. There was note of significant bleeding along the wall as we proceeded. We had to control these with clips as well as with electrocautery. This part of the procedure again to an extended period time. We proceeded slowly all the way to the fundus anterior the entire gallbladder was completely from the liver bed. This was retrieved through an endobag through the umbilical incision. I reinserted all ports and re-insufflated I examined the subhepatic space. Th ere was no significant bleeding although the liver bed appeared to be a little moist so I placed Surgicel on this area as well as the gallbladder fossa. I observed all 4 quadrants. There has no evidence of any bleeding or any bowel injury or any other pathology I observed the subhepatic space directly for about 2 minutes. Again this appeared hemostatic. We therefore desufflated through the port sites. I removed all ports under vision with the laparoscope. The umbilical port was removed last. The fascia of the umbilical incision was closed with [id number] Polysorb 0 stitch . Skin closure was achieved on all incisions using Polysorb 4-0 subcuticular running sutures. Steri-Strips and dressings were applied. All incisions were infiltrated with Marcaine 0.5% for postop analgesia The patient tolerated the procedure well. There were no immediate complications. Initial final counts of sponges and instruments were correct Estimated blood loss was about 125 cc. The patient was extubated without difficulty and transferred to recovery room with stable vital signs.
[2023-08-19] MEDS: HYDROmorphone HCl 0.5 MG/0.5 ML SYRINGE IVPUSH ×3 (13:33→14:19)
[2023-08-19] MEDS: Acetaminophen 325 MG TABLET 650 MG PO (13:46)
--- NOTE | 2023-08-19 13:49 | PC.NURSE ---
13:24 DR DELGADO ORDERED 1 MG TOTAL DILAUDID FIRST TO BE GIVEN BEFORE FENTANYL
[2023-08-19] MEDS: oxyCODONE HCl Immed Release 5 MG TABLET 10 MG PO (14:10)
== END 2023-08-19 15:00 | disposition home or self-care (01) ==
PROVIDERS: Nurse Practitioner; PCP Internal Medicine; Visit Provider Surgery
PROC: 0FT44ZZ Resection of Gallbladder, Percutaneous Endoscopic Approach (ICD-10-PCS; CPT 47562; principal; 2023-08-19 12:10)
DX: K80.12 Calculus of gallbladder with acute and chronic cholecystitis without obstruction (principal); B19.20 Unspecified viral hepatitis C without hepatic coma; E66.01 Morbid (severe) obesity due to excess calories; Z68.33 Body mass index [BMI] 33.0-33.9, adult; F31.9 Bipolar disorder, unspecified; Z79.899 Other long term (current) drug therapy; Z56.0 Unemployment, unspecified; F19.11 Other psychoactive substance abuse, in remission; Z72.0 Tobacco use
CPT/HCPCS: 47562; 80307; 81025; 86850; 86900; 86901; 88304; 88341; 88342; J1170; J1885; J2405; J2704; J3010

== ENCOUNTER → 2023-08-19 08:54 | Outpatient (BNV) | payer OTHER, SELFPAY | PROVIDERS: PCP Internal Medicine; Visit Provider Surgery | DX: K80.20 Calculus of gallbladder without cholecystitis without obstruction (principal) | CPT/HCPCS: 47562 ==